=== PATIENT | male | born 1980 | race Asian ===

== ENCOUNTER 2022-03-31 14:41 | Emergency (ER) | payer SELFPAY ==
[~2022-03-31] VITALS: Ht 170.2 cm; Wt 108.9 kg
--- NOTE | 2022-03-31 15:15 | NUR ---
BIBS W/ C/O INTERMITTENT CHEST PAIN RATED 6/10 X4 DAYS, RADIATES TO THE BACK. PT A/O X4, AMBULATORY. TO ER BED 1.
--- NOTE | 2022-03-31 15:20 | NUR ---
IV LINE IS ESTABLISHED, BLOOD SPECIMEN COLLECTED AND SENT TO THE LAB. THE LINE IS SALINE LOCKED.
--- NOTE | 2022-03-31 15:20 | NUR ---
DR BRANHAM AT BEDSIDE FOR EVAL
[2022-03-31 15:34] LABS: BASOPHILS % (AUTO) 0.3 % (0.0-2.0); EOSINOPHILS % (AUTO) 1.5 % (0.0-6.0); HEMATOCRIT 44 % (39-51); HEMOGLOBIN 14.7 g/dL (13.5-17.5); LYMPHOCYTES # (AUTO) 1.8 K/uL (0.8-4.8); MEAN CORPUSCULAR HGB CONC 34 g/dl (31.0-36.0); MEAN CORPUSCULAR VOLUME 83 fL (80-96); MONOCYTES # (AUTO) 0.7 K/uL (0.1-1.30); MONOCYTES % (AUTO) 8.3 % (2.0-12.0); NEUTROPHILS # (AUTO) 5.9 K/uL (1.8-8.9); NEUTROPHILS % (AUTO) 68.9 % (43.0-81.0); PLATELET COUNT (AUTO) 181 K/uL (150-450); RED BLOOD CELL COUNT(AUTO) 5.27 MIL/uL (4.5-6.0); WHITE BLOOD COUNT (AUTO) 8.5 K/uL (4.3-11.0)
[2022-03-31 15:38] LABS: CALCIUM, SERUM 8.8 mg/dL (8.5-10.1); CARBON DIOXIDE 30 mmol/L (21-32); CHLORIDE 105 mmol/L (98-107); CREATININE 0.8 mg/dL (0.6-1.3); GLUCOSE 122 mg/dL (74-106); POTASSIUM 3.1 mmol/L (3.5-5.1); SODIUM SERUM 143 mmol/L (136-145); UREA NITROGEN, BLOOD 16 mg/dL (7-18)
--- NOTE | 2022-03-31 15:48 | NUR ---
Deng ray in [facility] - 03/31/22 at 1549 by GERA CALLED NURSE ULISES FOR MIDLINE NURSE
--- NOTE | 2022-03-31 17:04 | NUR ---
PROJECT DEVELOPMENT LEADER AT BEDSIDE FOR TROPONIN BLOOD DRAW
[2022-03-31] MEDS ORDERED: KETOROLAC TROMETHAMINE 15 MG/ML VIAL ONE (18:26)
[2022-03-31] MEDS ORDERED: KETOROLAC TROMETHAMINE INJ 30 MG/ML VIAL IV ONE (18:30)
[2022-03-31 19:30] VITALS: BP 138/98
--- NOTE | 2022-03-31 19:30 | NUR ---
IV removed. Catheter intact and site benign. Pressure and 4x4 applied to site. No bleeding noted.Patient discharged to home in stable condition. Written and verbal after care instructions given. Patient verbalizes understanding of instruction.
== END 2022-03-31 19:31 | disposition home or self-care (01) ==
LOC: ER 14:46
DX: R07.89 Other chest pain (principal); I10 Essential (primary) hypertension; Z87.891 Personal history of nicotine dependence
CPT/HCPCS: 99291; 96374; 93005 ×3; 71045; 85025; 80048; 36415; 84484 ×2; 83880; J1885